=== PATIENT | male | born 1985 ===

== ENCOUNTER 2016-07-22 17:49 | Emergency (ER) | payer SELFPAY | END 2016-07-22 19:38 | disposition home or self-care (01) | LOC: ER 17:49 | DX: F41.9 Anxiety disorder, unspecified (principal); J45.909 Unspecified asthma, uncomplicated; K21.9 Gastro-esophageal reflux disease without esophagitis; F17.200 Nicotine dependence, unspecified, uncomplicated | CPT/HCPCS: 99283 ==